=== PATIENT | male | born 1975 | race Caucasian/White ===

== ENCOUNTER 2017-12-26 10:57 | Day surgery (SDC) | payer OTHER ==
[~2017-12-26] VITALS: Ht 177.8 cm; Wt 68.0 kg
[~2017-12-26 10:57] MED LIST: CYCL10 PO; HYDACE5 PO; HYDACE7.5 PO; NAPR500 PO; Norco 5-325 Ta1 EACH PO; OXYACE5T PO; PROM25S PR; RXHYDACE PO; RXPROM25S PR; Zantac150 MG PO
== END 2017-12-26 22:48 | disposition home or self-care (01) ==
LOC: ORSCMMR 10:57
PROVIDERS: Orthopaedic Surgery
PROC: 0PS904Z Reposition Right Clavicle with Internal Fixation Device, Open Approach (ICD-10-PCS; principal; 2017-12-26 12:30)
DX: S42.021A Displaced fracture of shaft of right clavicle, initial encounter for closed fracture (principal); K21.9 Gastro-esophageal reflux disease without esophagitis; F17.210 Nicotine dependence, cigarettes, uncomplicated; Z79.899 Other long term (current) drug therapy
CPT/HCPCS: C1713; J0690; J2250; J2710; J3010; J7120

== ENCOUNTER 2024-02-06 00:36 | Emergency (ER) | payer OTHER, BC ==
[~2024-02-06] VITALS: Ht 177.8 cm; Wt 68.0 kg
[2024-02-06] MEDS ORDERED: Lidocaine 4% 1 Patch TOP ONE (02:25)
[2024-02-06] MEDS ORDERED: Ibuprofen 600 MG Tab PO ONE (02:25)
[2024-02-06 02:45] VITALS: BP 120/87
== END 2024-02-06 02:56 | disposition home or self-care (01) ==
LOC: ER 00:36
DX: S29.012A Strain of muscle and tendon of back wall of thorax, initial encounter (principal); F17.210 Nicotine dependence, cigarettes, uncomplicated; X50.0XXA Overexertion from strenuous movement or load, initial encounter
CPT/HCPCS: A9270